=== PATIENT | female | born 1945 | race Two or more races ===

== ENCOUNTER 2017-10-24 12:16 | Emergency (ER) | payer MEDICARE, MEDICAID ==
[~2017-10-24] VITALS: Ht 154.9 cm; Wt 77.1 kg
[2017-10-24 12:34] VITALS: BP 158/85
[2017-10-24] MEDS ORDERED: KETOROLAC TROMETH 30 MG/ML 1ML VIAL IM ONE (13:45)
[2017-10-24] MEDS ORDERED: traMADol HCL 50 MG TAB PO ONE (13:45)
== END 2017-10-24 14:19 | disposition home or self-care (01) ==
LOC: EDBD 12:16 → ER 12:16
DX: S39.012A Strain of muscle, fascia and tendon of lower back, initial encounter (principal); G89.29 Other chronic pain; R51 Headache; I10 Essential (primary) hypertension; E78.5 Hyperlipidemia, unspecified; Z88.6 Allergy status to analgesic agent; V49.59XA Passenger injured in collision with other motor vehicles in traffic accident, initial encounter; Y93.89 Activity, other specified; Y99.8 Other external cause status; Y92.410 Unspecified street and highway as the place of occurrence of the external cause
CPT/HCPCS: 70450; 72070; 72100; 96372; 99284; J1885

== ENCOUNTER 2024-03-02 18:01 | Emergency (ER) | payer MEDICARE, MEDICAID ==
[~2024-03-02] VITALS: Ht 154.9 cm; Wt 61.8 kg
[2024-03-02 21:03] VITALS: BP 155/52; PULSE 80; RESP 18; TEMP 97.7; O2SAT 97
== END 2024-03-02 22:07 | disposition home or self-care (01) ==
LOC: ER 18:01
DX: S90.32XA Contusion of left foot, initial encounter (principal); E78.5 Hyperlipidemia, unspecified; I10 Essential (primary) hypertension; Z88.6 Allergy status to analgesic agent; W18.39XA Other fall on same level, initial encounter; Y93.89 Activity, other specified; Y92.89 Other specified places as the place of occurrence of the external cause; Y99.8 Other external cause status
CPT/HCPCS: 73630

== ENCOUNTER 2024-04-28 09:37 | Day surgery (SDC) | payer MEDICARE, MEDICAID ==
[~2024-04-28] VITALS: Ht 154.9 cm; Wt 63.0 kg
[~2024-04-28 09:37] MED LIST: ASPI-543 PO; ATOR40TA52 PO; BACL10TA PO; ENAL1TAB42 PO; MULT1TAB28 PO; OMEP20TA PO; [UNRECOGNIZED DRUG - CODE] PO
[2024-04-28] MEDS ORDERED: LIDOCAINE 2%HCL (LOCAL ANESTH.) INJ 20ML MDV ONE (10:40)
[2024-04-28] MEDS ORDERED: fentaNYL CITRATE 100 MCG/2 ML VL ONE (10:40)
[2024-04-28] MEDS ORDERED: MIDAZOLAM HCL 2MG/2ML 2ml VIAL (1mg/ml) ONE (10:40)
[2024-04-28 10:55] VITALS: BP 118/56; PULSE 69; RESP 18; TEMP 98; O2SAT 92
[2024-04-28 11:00] VITALS: BP 127/53; PULSE 77; RESP 16; O2SAT 92
[2024-04-28 11:15] VITALS: BP 136/59; PULSE 71; RESP 16; O2SAT 92
[2024-04-28 11:30] VITALS: BP 139/53; PULSE 70; RESP 15; O2SAT 94
[2024-04-28 11:45] VITALS: BP 118/46; PULSE 67; RESP 16; O2SAT 93
[2024-04-28 12:00] VITALS: BP 116/49; PULSE 68; RESP 15; O2SAT 93
== END 2024-04-28 12:38 | disposition home or self-care (01) ==
LOC: CATH 09:37
PROVIDERS: ATTEND Internal Medicine
DX: R55 Syncope and collapse (principal); I10 Essential (primary) hypertension; E78.5 Hyperlipidemia, unspecified; E11.9 Type 2 diabetes mellitus without complications; E66.9 Obesity, unspecified; Z68.32 Body mass index [BMI] 32.0-32.9, adult; F17.210 Nicotine dependence, cigarettes, uncomplicated; Z79.899 Other long term (current) drug therapy; Z88.6 Allergy status to analgesic agent; Z98.890 Other specified postprocedural states
CPT/HCPCS: 33285; C1764; J2250; J3010; 99152

== ENCOUNTER 2024-09-11 17:12 | Emergency (ER) | payer MEDICARE, MEDICAID ==
[~2024-09-11] VITALS: Ht 154.9 cm; Wt 64.2 kg
[2024-09-11] MEDS ORDERED: DOXY100C4 PO (18:39)
[2024-09-11] MEDS ORDERED: DIP005TP EX (18:39)
--- NOTE | 2024-09-11 18:40 | ED.PDOC ---
History of Present Illness(SKN HPI Comments Pt presents to ED with c/c of rash to right forearms x few hours. States rash is painful and itchy. Denies any new formulas used Chief Complaint: Rash Time Seen by MD: 17:40 Primary Care Provider: JESSICA History of Present Illness: Nurses Notes, Medications, Allergies Allergies: Coded Allergies: Codeine (Unverified Allergy, Unknown, 04/23/24) Home Meds Reported Medications Multiple Vitamins W/ Minerals (Centrum Adults) 1 Tab Tab, 1 TAB PO DAILY, TAB 04/23/24 Aspirin (Aspir-Low) 81 Mg Tab, 81 MG PO DAILY, MG 04/23/24 Omeprazole (Gnp Omeprazole) 20 Mg Tab, 1 TAB PO DAILY for GERD, #90 TAB 1 Refill 04/23/24 Baclofen (Baclofen) 10 Mg Tab, 10 MG PO BID PRN for MUSCLE SPASMS, MG 04/23/24 Amitriptyline HCl (Amitriptyline Hydrochlori) 150 Mg Tab, 150 MG PO HS, TAB 04/23/24 Atorvastatin Calcium (ATORVASTATIN CALCIUM) 40 Mg Tab, 1 TAB PO DAILY for HIGH CHOLESTEROL, #30 TAB 5 Refills 04/23/24 Enalapril Maleate (Enalapril Maleate) 2.5 Mg Tab, 5 MG PO DAILY for HTN, MG 04/23/24 Mode of Arrival: Ambulatory Past Medical History PAST MEDICAL HISTORY: High Lipids, HTN Surgical History: Denies all surgeries DEDENTER History: No Pertinent DEDENTER History Family History Family History: Unknown Social History Smoker: Non-Smoker Alcohol: Denies ETOH Use Drugs: Denies Drug Use Lives In: Home Constitutional: denies: chills, diaphoresis, fatigue, fever, malaise, sweats, weakness, others EENTM: denies: blurred vision, double vision, ear bleeding, ear discharge, ear drainage, ear pain, ear ringing, eye pain, eye redness, hearing loss, mouth pain, mouth swelling, nasal discharge, nose bleeding, nose congestion, nose pain, photophobia, tearing, throat pain, throat swelling, voice changes, others Respiratory: denies: cough, hemoptysis, orthopnea, SOB at rest, shortness of breath, SOB with excertion, stridor, wheezing, others Cardiovascular: denies: chest pain, dizzy spells, diaphoresis, Dyspnea on exertion, edema, irregular heart beat, left arm pain, lightheadedness, palpitations, PND, syncope, others Gastrointestinal: denies: abdomen distended, abdominal pain, blood streaked bowels, constipated, diarrhea, dysphagia, difficulty swallowing, hematemesis, melena, nausea, poor appetite, poor fluid intake, rectal bleeding, rectal pain, vomiting, others Genitourinary: denies: abnormal vagina bleeding, burning, dyspareunia, dysuria, flank pain, frequency, hematuria, incontinence, pain, , vagina discharge, urgency, others Neurological: denies: dizziness, fainting, headache, left sided numbness, left sided weakness, numbness, paresthesia, pre-existing deficit, right sided numbness, right sided weakness, seizure, speech problems, tingling, tremors, weakness, others Musculoskeletal: denies: back pain, gout, joint pain, joint swelling, muscle pain, muscle stiffness, neck pain, others Integumetry: reports: rash (RIGHT FOREARM ); denies: bruises, change in color, change in hair/nails, dryness, laceration, lesions, lumps, wounds, others Allergic/Immunocompromised: denies: Difficulty Healing, Frequent Infections, Hives, Itching, others Hematologic/Lymphatic: denies: anemia, blood clots, easy bleeding, easy brui sing, swollen glands, others Endocrine: denies: excessive hunger, excessive sweating, excessive thirst, ex cessive urination, flushing, intolerance to cold, intolerance to heat, unexplained weight gain, unexplained weight loss, others Psychiatric: denies: anxiety, bipolar disorder, depression, hopeless, panic disorder, schizophrenia, sleepless, suicidal, others Physical Exam General Appearance: No Apparent Distress, Normal HEENT: Pharynx Normal Neck: Full Range of Motion, Non-Tender Respiratory: Lungs Clear, No Respiratory Distress, Normal Breath Sounds Cardiovascular: No Murmur, Normal Peripheral Pulses, Regular Rate/Rhythm Breast Exam: Deferred Gastrointestinal: Non Tender, Soft Genitalia: Deferred Pelvic: Deferred Rectal: Deferred Extremities: Normal capillary refill, Normal inspection, Normal range of motion, Non-tender, No pedal edema Musculoskeletal : Apperance: Normal Neurologic: Alert, assistant property manager II-XII nml as Tested, No Motor Deficits, Normal Affect, Normal Mood, No Sensory Deficits Cerebellar Function: Normal Reflexes: Normal Skin: Dry, Normal Color, Rash (ERYTHEMIC RASH WITH CENTER WOUND, NO STREAKING O R DRAINAGE NOTED ), Warm Lymphatic: No Adenopathy Was a procedure done? Was a procedure done?: No Differential Diagnosis (INTG) Differential Diagnosis: Cellulitis Differential Diagnosis: Contact Dermatitis X-Ray, Labs, Meds, VS Vital Signs Date Time Temp Pulse Resp B/P (MAP) Pulse Ox O2 Delivery O2 Flow Rate FiO2 09/11/24 17:40 98.1 76 18 115/76 (89) 96 X-Ray, Labs, Meds, VS Comment LIKELY BUG BITE. SCRIPT ABX ANS STEROID CREAM. FOLLOW UP WITH PCP IN 1-2 DAYS. ER RETURN PRECAUTIONS GIVEN. Time of 1ST Reevaluation: 18:36 Reevaluation 1ST: Improved Patient Education/Counseling: Diagnosis, Treatment, Prognosis, Need For Follow Up Family Education/Counseling: Diagnosis, Treatment, Prognosis, Need For Follow Up Departure 1 Departure Time of Disposition: 18:37 Impression: Primary Impression: Bug bite Qualified Codes: W57.XXXA - Bitten or stung by nonvenomous insect and other nonvenomous arthropods, initial encounter Disposition: HOME / SELF CARE / HOMELESS Condition: Stable e-Prescriptions Betamethasone Dipropionate (Betamethasone Dipropionat) 0.05 % Cre 0.05 % EX BID for 7 Days, #15 GRAMS APPLY THIN LAYER TO AFFECTED AREA BID X 7 DAYS Prov: DINESH NAVARRO 09/11/24 Doxycycline Hyclate (Doxycycline Hyclate) 100 Mg Cap 100 MG PO BID for 5 Days, #10 CAP Prov: DINESH NAVARRO 09/11/24 Discharged With: Relative, Spouse Critical Care Note Critical Care Time?: No Stability Stability form required: No DINESH NAVARRO Sep 11, 2024 18:40
[2024-09-11 18:49] VITALS: BP 116/76; PULSE 86; RESP 17; TEMP 98.6; O2SAT 96
== END 2024-09-11 18:52 | disposition home or self-care (01) ==
LOC: ER 17:12
DX: S50.861A Insect bite (nonvenomous) of right forearm, initial encounter (principal); R21 Rash and other nonspecific skin eruption; I10 Essential (primary) hypertension; E78.5 Hyperlipidemia, unspecified; Z88.5 Allergy status to narcotic agent; Z79.899 Other long term (current) drug therapy; Z79.82 Long term (current) use of aspirin; W57.XXXA Bitten or stung by nonvenomous insect and other nonvenomous arthropods, initial encounter; Y92.89 Other specified places as the place of occurrence of the external cause; Y93.89 Activity, other specified; Y99.8 Other external cause status